=== PATIENT | male | born 1995 | race Caucasian/White ===

== ENCOUNTER 2019-08-29 21:43 | Emergency (ER) | payer OTHER ==
[~2019-08-29] VITALS: Ht 152.4 cm; Wt 63.5 kg
[2019-08-29 23:32] VITALS: BP 109/76
== END 2019-08-29 23:33 | disposition home or self-care (01) ==
LOC: ER 21:43
DX: J02.9 Acute pharyngitis, unspecified (principal); R05 Cough; R06.02 Shortness of breath; F17.210 Nicotine dependence, cigarettes, uncomplicated